=== PATIENT | female | born 1975 | race Two or more races ===

== ENCOUNTER 2024-03-01 17:48 | Emergency (ER) | payer MEDICAID ==
[~2024-03-01] VITALS: Ht 157.5 cm; Wt 90.9 kg
[2024-03-01 17:53] VITALS: BP 159/98; PULSE 68; RESP 18; TEMP 98; O2SAT 99
[2024-03-01] MEDS ORDERED: METF-1211 PO (17:54)
[2024-03-01] MEDS: KETOROLAC TROMETHAMINE 30 MG/ML VIAL IM ONE (22:45)
[2024-03-01] MEDS: TraMADol HCL 50 MG TABLET PO ONE (22:45)
[2024-03-01] MEDS: LIDOCAINE 5% TRANSDERMAL PATCH TD ONE (22:46)
[2024-03-02] MEDS ORDERED: TRAM50TA5 PO (00:41)
[2024-03-02] MEDS ORDERED: LIDO700A15 TP (00:42)
== END 2024-03-02 00:53 | disposition home or self-care (01) ==
LOC: EMS 17:48
DX: M25.552 Pain in left hip (principal)
CPT/HCPCS: 99283; 73503; 96372; J1885